=== PATIENT | female | born 1990 | race Caucasian/White ===

== ENCOUNTER 2017-07-26 03:30 | Inpatient (IN) | payer OTHER ==
[2017-07-26] MEDS ORDERED: AMPICILLIN SODIUM 2 GM VIAL ONE (04:26)
[2017-07-26] MEDS ORDERED: AMPICILLIN - 2 GM in SODIUM CHLORIDE 100 ML IVPB ONE (04:30)
[2017-07-26 04:45] LABS: BASO % 0.2 % (0-2.0); EOS % 1.1 % (0-4.5); HEMATOCRIT 37.3 % (32.4-45.2); HEMOGLOBIN 12.4 GM/dL (10.7-15.3); LYMPH % 16.2 % (8-40); MCH 31.5 pg (25.7-33.7); MCHC 33.1 g/dl (32.0-36.0); MEAN CELL VOLUME 95.2 fl (80-96); MEAN PLT VOLUME 9.9 fl (7.5-11.1); MONO % 7.2 % (3.8-10.2); NEUT % 75.3 % (42.8-82.8); PLATELET COUNT 220 K/MM3 (134-434); RBC 3.92 M/mm3 (3.60-5.2); RDW 14.2 % (11.6-15.6); WHITE BLOOD COUNT 7.5 K/mm3 (4.0-10.0)
[2017-07-26 04:57] LABS: INR 0.88 (0.82-1.09)
[2017-07-26 05:00] LABS: ACTIVATED PTT 27.6 SECONDS (26.9-34.4)
[2017-07-26 05:04] LABS: ANION GAP 10 (8-16); BLOOD UREA NITROGEN 10 mg/dL (7-18); CALCIUM 7.8 mg/dL (8.5-10.1); CHLORIDE 110 mmol/L (98-107); CO2 21 mmol/L (21-32); CREATININE 0.6 mg/dL (0.55-1.02); GLUCOSE,RANDOM 78 mg/dL (74-106); POTASSIUM 4.1 mmol/L (3.5-5.1); SODIUM 141 mmol/L (136-145)
[2017-07-26 05:08] VITALS: BMI 31.8
[2017-07-26] MEDS ORDERED: DEXTROSE 5%-LACTATED RINGERS 1,000 ML IV SCH (05:30)
[2017-07-26] MEDS ORDERED: BUTORPHANOL TARTRATE 1 MG/ML VIAL ONE (06:19)
[2017-07-26] MEDS ORDERED: PROMETHAZINE HCL 25 MG/1 ML VIAL ONE (06:19)
[2017-07-26] MEDS ORDERED: BUTORPHANOL TARTRATE 1 MG/ML VIAL IVPUSH ONE (06:30)
[2017-07-26] MEDS ORDERED: PROMETHAZINE HCL 25 MG/1 ML VIAL IVPB ONE (06:30)
[2017-07-26] MEDS ORDERED: ELECTROLYTE-148 SOLN 1,000 ML IV ONE (06:40)
--- NOTE | 2017-07-26 07:22 | PN ---
Progress Note (short form) - Note Progress Note: cx 6 cm, 100 vx ,-1 mi, variable deceleration , with good recovery, arom done small clear fluid , scalp electrode , LT side
--- NOTE | 2017-07-26 07:29 | HP ---
Past Medical History - Primary Care Physician PCP:: Jake Boucher - Admission Chief Complaint: 39 weeks, labor History of Present Illness: 26 yo f g 3 p2002 edc by sono 07/30/17 in labor , cx 3 cm 80 vx -2 mi fhr cat 1, contraction q 2 min History Source: Patient Limitations to Obtaining History: No Limitations - Past Medical History ...: 3 ...Para: 2 ...Term: 2 ...LMP: 10/23/16 ...EDC by Sono: 07/30/17 - Past Surgical History Hx Myomectomy: No Hx Transabdominal Cerclage: No - Smoking History Smoking history: Never smoked Have you smoked in the past 12 months: No - Alcohol/Substance Use Hx Alcohol Use: No - Social History Usual Living Arrangement: Yes: With Spouse History of Recent Travel: No Home Medications - Allergies Allergies/Adverse Reactions: Allergies Allergy/AdvReac Type Severity Reaction Status Date / Time No Known Drug Allergies Allergy Verified 05/04/16 10:27 - Home Medications Home Medications: Ambulatory Orders Plus Iron Tablet 1 tab PO DAILY 07/26/17 Review of Systems - Review of Systems Constitutional: reports: No Symptoms Eyes: reports: No Symptoms HENT: reports: No Symptoms Neck: reports: No Symptoms Cardiovascular: reports: No Symptoms Respiratory: reports: No Symptoms Gastrointestinal: reports: No Symptoms Genitourinary: reports: No Symptoms Breasts: reports: No Symptoms Reported Musculoskeletal: reports: No Symptoms Integumentary: reports: No Symptoms Neurological: reports: No Symptoms Endocrine: reports: No Symptoms Hematology/Lymphatic: reports: No Symptoms Psychiatric: reports: No Symptoms Physical Exam - Maternity Vital Signs: Vital Signs Temperature 98.2 F 07/26/17 06:00 Pulse Rate 74 07/26/17 06:00 Respiratory Rate 20 07/26/17 06:00 Blood Pressure 133/87 07/26/17 06:00 O2 Sat by Pulse Oximetry (%) Constitutional: Yes: Well Nourished, No Distress, Calm Eyes: Yes: WNL, Conjunctiva Clear, EOM Intact HENT: Yes: WNL, Atraumatic, Normocephalic Neck: Yes: WNL, Supple, Trachea Midline Cardiovascular: Yes: WNL, Regular Rate and Rhythm Breast(s): Yes: WNL - Abdominal Exam/OB Fundal Height: 40 Number of Fetuses: Single Presentation: Vertex Contractions: Yes Regularity: Regular Intensity: Mod/Strong Monitor Mode: External Heart Rate Location: [facility] Category: I Accelerations: Uniform Decelerations: None - Vaginal Exam/OB Vaginal Bleediing: No Speculum Exam: No Dilatation (cm): 3 cm Effacement (%): 80 Presentation: Vertex/Position Station: -2 - Physical Exam Musculoskeletal: Yes: WNL Extremities: Yes: WNL Edema: Yes Edema: LLE: Trace, RLE: Trace Deep Tendon Reflex Grade: Normal +2 Psychiatric: Yes: WNL - Labs Lab Results: CBC, BMP 07/26/17 04:30 07/26/17 04:30 Hemorrhage Risk Assessment - Risk Factors Medium Risk Factors: Yes: None High Risk Factors: Yes: None Risk Score: 1 Risk Level: Medium Risk Problem List - Problems (1) with 39 completed weeks gestation Code(s): Z3A.39 - 39 WEEKS GESTATION OF (2) Labor established Code(s): [id number] - Assessment/Plan plan admit, fhm, pain management
[2017-07-26] MEDS ORDERED: LIDOCAINE HCL 1% PRESERVATIVE FREE - 30ML VIAL ONE (07:56)
[2017-07-26] MEDS ORDERED: BENZOCAINE 20% 57 GM BOTTLE TP PRN (08:09)
[2017-07-26] MEDS ORDERED: BISACODYL 10 MG SUPP.RECT RC PRN (08:09)
[2017-07-26] MEDS ORDERED: oxyCODONE HCL 5 MG TABLET PO PRN (08:09)
[2017-07-26] MEDS ORDERED: WITCH HAZEL 50% (TUCKS) 40 PAD/JAR PAD TP PRN (08:09)
[2017-07-26] MEDS ORDERED: METHYLERGONOVINE MALEATE 0.2 MG/1 ML AMP IM PRN (08:09)
[2017-07-26] MEDS ORDERED: BENZOCAINE 28 GM HEMORRHOIDAL OINTMENT TP PRN (08:09)
[2017-07-26] MEDS ORDERED: D5W-LR W/ 20 UNITS OXYTOCIN 20 UNIT/1,000 ML INFUS.BAG IV SCH (08:15)
[2017-07-26 08:30] LABS: ARTERIAL BLD GAS O2 SATURATION 30.1 % (90-98.9)
[2017-07-26 08:52] LABS: VENOUS PC02 48.2 mmHg (38-52); VENOUS PH 7.2 (7.32-7.42)
[2017-07-26 08:53] LABS: VENOUS PO2 25.4 mmHg (28-48)
[2017-07-26] MEDS ORDERED: OXYTOCIN 20 UNITS in 0.9% NS 20 UNIT/1,000 ML INFUS.BAG IV ONE (08:54)
[2017-07-26] MEDS ORDERED: PRENATAL VITAMINS W/ FOLIC ACID TABLET (FP) PO SCH (10:00)
[2017-07-26] MEDS: AMPICILLIN - 1 GM in SODIUM CHLORIDE 100 ML IVPB SCH ×4 (10:14→21:30)
[2017-07-26] MEDS: IBUPROFEN 600 MG TABLET (FP) PO PRN (10:17)
[2017-07-26] MEDS: FERROUS SO4 325 MG TABLET (FP) PO SCH ×2 (10:17→21:31)
[2017-07-26] MEDS: PRENATAL VITAMINS W/ FOLIC ACID TABLET (FP) PO SCH (10:17)
[2017-07-26] MEDS: ACETAMINOPHEN 325 MG TABLET (FP) PO PRN (10:18)
[2017-07-27] MEDS: AMPICILLIN - 1 GM in SODIUM CHLORIDE 100 ML IVPB SCH ×2 (03:38→06:06)
[2017-07-27 08:40] LABS: BASO % 0.4 % (0-2.0); EOS % 1.9 % (0-4.5); HEMATOCRIT 34.7 % (32.4-45.2); HEMOGLOBIN 11.2 GM/dL (10.7-15.3); LYMPH % 25.7 % (8-40); MCH 31.3 pg (25.7-33.7); MCHC 32.4 g/dl (32.0-36.0); MEAN CELL VOLUME 96.8 fl (80-96); MEAN PLT VOLUME 9.3 fl (7.5-11.1); PLATELET COUNT 194 K/MM3 (134-434); RBC 3.59 M/mm3 (3.60-5.2); RDW 14.9 % (11.6-15.6); WHITE BLOOD COUNT 5.2 K/mm3 (4.0-10.0)
[2017-07-27] MEDS: PRENATAL VITAMINS W/ FOLIC ACID TABLET (FP) PO SCH (09:26)
[2017-07-27] MEDS: FERROUS SO4 325 MG TABLET (FP) PO SCH ×2 (09:26→21:27)
--- NOTE | 2017-07-27 13:00 | PN ---
Post Progress Note - Subjective Subjective: 26 yo Para 3 status post vaginal delivery, seen and evaluated. Doing well. Post Day: 1 Type of Delivery: Vital Signs: Vital Signs Temperature 97.9 F 07/27/17 06:00 Pulse Rate 80 07/27/17 06:00 Respiratory Rate 18 07/27/17 06:00 Blood Pressure 112/66 07/27/17 06:00 O2 Sat by Pulse Oximetry (%) 100 07/26/17 09:00 Breast Exam: Yes: Soft Uterus: Yes: Fundus Firm Abdomen/GI: Yes: Abdomen soft, Tolerating PO Lochia: Yes: Rubra Lochia, amount: Small Extremities: Yes: Calves non-tender Perineum: Yes: Intact Activity: Ambulating - Labs Labs: CBC WBC 5.2 K/mm3 (4.0-10.0) D 07/27/17 08:00 RBC 3.59 M/mm3 (3.60-5.2) L 07/27/17 08:00 Hgb 11.2 GM/dL (10.7-15.3) 07/27/17 08:00 Hct 34.7 % (32.4-45.2) 07/27/17 08:00 MCV 96.8 fl (80-96) H 07/27/17 08:00 MCH 31.3 pg (25.7-33.7) 07/27/17 08:00 MCHC 32.4 g/dl (32.0-36.0) 07/27/17 08:00 RDW 14.9 % (11.6-15.6) 07/27/17 08:00 Plt Count 194 K/MM3 (134-434) 07/27/17 08:00 MPV 9.3 fl (7.5-11.1) 07/27/17 08:00 Neutrophils % 62.0 % (42.8-82.8) 07/27/17 08:00 Lymphocytes % 25.7 % (8-40) D 07/27/17 08:00 Monocytes % 10.0 % (3.8-10.2) 07/27/17 08:00 Eosinophils % 1.9 % (0-4.5) 07/27/17 08:00 Basophils % 0.4 % (0-2.0) 07/27/17 08:00 Problem List - Problems (1) Status post normal vaginal delivery Code(s): NFC1205 - Assessment/Plan Status post vaginal delivery Stable Continue routine care
[2017-07-27] MEDS ORDERED: SENNOSIDES/DOCUSATE COMBO (SENNA PLUS) TABLET (UD) PO PRN (22:00)
--- NOTE | 2017-07-28 05:51 | DS ---
Physical Exam-[employer] [employer] Vital Signs: Vital Signs Temperature 98.4 F 07/27/17 20:55 Pulse Rate 96 H 07/27/17 20:55 Respiratory Rate 20 07/27/17 20:55 Blood Pressure 118/69 07/27/17 20:55 O2 Sat by Pulse Oximetry (%) 100 07/26/17 09:00 Constitutional: Yes: Well Nourished Eyes: Yes: Conjunctiva Clear HENT: Yes: Atraumatic Neck: Yes: Supple, Trachea Midline Cardiovascular: Yes: Regular Rate and Rhythm Respiratory: Yes: Regular, CTA Bilaterally Gastrointestinal: Yes: Normal Bowel Sounds External Genitalia: Yes: Normal Vaginal Exam: Yes: Normal ....Post : Yes: Uterus firm, Slight lochia rubra Breast(s): Yes: WNL Extremities: Yes: WNL Neurological: Yes: Alert, Oriented ...Motor Strength: WNL Psychiatric: Yes: Alert, Oriented Labs: CBC, BMP 07/27/17 08:00 07/26/17 04:30 Delivery - Delivery Type of Anesthesia: None Episiotomy/Laceration: None EBL (cc): 300 Delivery, Single - Stages of Labor Date 1st Stage Initiatied: 07/26/17 Time 1st Stage Initiated: 01:00 Date 2nd Stage Initiated: 07/26/17 Time 2nd Stage Initiated: 07:55 Date of Delivery: 07/26/17 Time of Delivery: 08:00 Time Placenta Delivered: 08:05 - Condition of Infant Cosmetic Account Coordinator/Painting Supervisor Present: No Infant Gender: Male Weight: 5 lb Position: Left, OA Total Hours ROM (Hrs/Mins): 50min - 1 Minute Total Score: 9 5 Minutes Total Score: 9 - [employer] Feeding Plan Initial Plan: Exclusive throughout hospitalization Discharge Summary Reason For Visit: LABOR ADMIT Current Active Problems Labor established (Acute) with 39 completed weeks gestation (Acute) Status post normal vaginal delivery (Acute) Procedures: Principal: Normal spontaneous vaginal delivery Hospital Course: Routine care Condition: Good - Instructions Diet, Activity, Other Instructions: Regular diet No douching, no sexual intercourse x 6 weeks F/U in clinic in 6 weeks Disposition: HOME - Home Medications Comprehensive Discharge Medication List: Ambulatory Orders Ferrous Sulfate 325 mg PO DAILY 07/26/17 Vitamins (Sjr) - 1 tab PO DAILY 07/26/17
[2017-07-28] MEDS: ACETAMINOPHEN 325 MG TABLET (FP) PO PRN (08:23)
[2017-07-28] MEDS: IBUPROFEN 600 MG TABLET (FP) PO PRN (08:23)
[2017-07-28] MEDS: PRENATAL VITAMINS W/ FOLIC ACID TABLET (FP) PO SCH (10:54)
[2017-07-28] MEDS: FERROUS SO4 325 MG TABLET (FP) PO SCH (10:54)
[2017-07-28 13:49] VITALS: BP 119/80; PULSE 77; TEMP 97.8
== END 2017-07-28 12:00 | disposition home or self-care (01) | DRG 560 ==
LOC: JDEL 03:30 → JLDR 04:00 → J3W 09:43
PROVIDERS: ADMIT Obstetrics & Gynecology; ATTEND Obstetrics & Gynecology
PROC: 10E0XZZ Delivery of Products of Conception, External Approach (ICD-10-PCS; principal; 2017-07-26)
DX: O76 Abnormality in fetal heart rate and rhythm complicating labor and delivery (principal); Z3A.39 39 weeks gestation of pregnancy; Z37.0 Single live birth
CPT/HCPCS: 36415; 36600; 59409; 80048; 82803; 85025; 85610; 85730; 86593; 86850; 86900; 86901

== ENCOUNTER 2022-02-20 18:23 | Emergency (ER) | payer OTHER ==
[2022-02-20 18:30] VITALS: BP 111/73; PULSE 66; RESP 18; TEMP 98; BMI 30.2
[2022-02-20] MEDS ORDERED: SODIUM CHLORIDE 0.9% 500 ML INFUS.BAG IV ONE (20:43)
[2022-02-20] MEDS ORDERED: ACETAMINOPHEN 1000 MG/100 ML BAG IVPB ONE (20:43)
[2022-02-20] MEDS ORDERED: ACETAMINOPHEN INJECTION 100 ML IVPB ONE (20:46)
[2022-02-20 21:11] LABS: BASO % 0.2 % (0-2.0); EOS % 0.5 % (0-4.5); HEMATOCRIT 34.2 % (32.4-45.2); LYMPH % 9.7 % (8-40); MCH 33.7 pg (25.7-33.7); MCHC 35.2 g/dl (32.0-36.0); MEAN CELL VOLUME 95.8 fl (80-96); MEAN PLT VOLUME 8.1 fl (7.5-11.1); MONO % 3.7 % (3.8-10.2); NEUT % 85.9 % (42.8-82.8); PLATELET COUNT 315 10^3/uL (134-434); RBC 3.56 M/mm3 (3.60-5.2); RDW 12.6 % (11.6-15.6)
[2022-02-20 21:31] LABS: BLOOD UREA NITROGEN 9.9 mg/dL (7-18); CALCIUM 8.6 mg/dL (8.5-10.1)
[2022-02-20 21:34] LABS: CREATININE 0.5 mg/dL (0.55-1.3)
[2022-02-20 21:36] LABS: BILIRUBIN,TOTAL 0.3 mg/dL (0.2-1); TOT PROT 6.7 g/dl (6.4-8.2)
[2022-02-20 22:39] LABS: URINE APPEARANCE CLEAR; URINE BILIRUBIN NEGATIVE (NEGATIVE); URINE COLOR YELLOW; URINE GLUCOSE (UA) NEGATIVE (NEGATIVE); URINE KETONE NEGATIVE (NEGATIVE); URINE LEUK ESTERASE NEGATIVE (NEGATIVE); URINE NITRITE NEGATIVE (NEGATIVE); URINE PROTEIN NEGATIVE (NEGATIVE)
== END 2022-02-20 23:11 | disposition home or self-care (01) ==
LOC: JER 18:23
PROC: 3E033NZ Introduction of Analgesics, Hypnotics, Sedatives into Peripheral Vein, Percutaneous Approach (ICD-10-PCS; principal; 2022-02-20)
DX: O26.891 Other specified pregnancy related conditions, first trimester (principal); R11.10 Vomiting, unspecified; Z3A.12 12 weeks gestation of pregnancy
CPT/HCPCS: 36415; 76801-TC; 80053; 81003; 83735; 85025; 87086; 93005; 93010; 99284-25

== ENCOUNTER 2022-05-16 11:51 | Emergency (ER) | payer OTHER ==
[2022-05-16 13:01] VITALS: RESP 20; BMI 31.8
[2022-05-16] MEDS ORDERED: ALBUTEROL SO4 2.5/IPRATROPIUM 0.5 INH SOL 3 ML VIAL.NEB. NEB ONE ×2 (15:00→15:06)
[2022-05-16] MEDS ORDERED: IPRATROPIUM BR 0.02% 0.5 MG/2.5 ML VIAL.NEB. NEB ONE (15:06)
[2022-05-16 17:21] VITALS: BP 128/72; PULSE 82; TEMP 98.1
== END 2022-05-16 17:32 | disposition home or self-care (01) ==
LOC: JER 11:51
PROC: 3E0F7GC Introduction of Other Therapeutic Substance into Respiratory Tract, Via Natural or Artificial Opening (ICD-10-PCS; principal; 2022-05-16)
DX: O99.512 Diseases of the respiratory system complicating pregnancy, second trimester (principal); R06.2 Wheezing; J06.9 Acute upper respiratory infection, unspecified; Z3A.24 24 weeks gestation of pregnancy
CPT/HCPCS: 0241U-QW; 99283-25

== ENCOUNTER 2022-05-24 07:46 | Emergency (ER) | payer OTHER ==
[2022-05-24 07:57] VITALS: BP 112/66; PULSE 104; RESP 19; TEMP 98.2; BMI 31.7
[2022-05-24] MEDS ORDERED: ALBUTEROL SO4 2.5/IPRATROPIUM 0.5 INH SOL 3 ML VIAL.NEB. NEB ONE ×3 (08:29→10:01)
[2022-05-24] MEDS ORDERED: IBUPROFEN 100 MG/5 ML UNIT DOSE CUPS ONE (09:19)
[2022-05-24] MEDS ORDERED: guaiFENesin 600 MG TABLET.ER (FP) PO ONE (09:51)
[2022-05-24] MEDS ORDERED: ALBUTEROL SO4 0.5 % INH SOLN 2.5 MG/0.5 ML VIAL.NEB. NEB ONE (09:52)
[2022-05-24] MEDS ORDERED: ALBUTEROL SO4 0.083% IH SOL 2.5 MG/3 ML VIAL.NEB. NEB ONE (10:02)
[2022-05-24] MEDS ORDERED: MAGNESIUM SULF 50% (8.12 MEQ/2 ML-1 GM VIAL) IVPB ONE (11:15)
[2022-05-24] MEDS ORDERED: MAGNESIUM 1GM/D5W - 2 GM/200 ML IVPB IVPB ONE (11:24)
[2022-05-24] MEDS ORDERED: DEXAMETHASONE 4 MG TABLET (FP) PO ONE (11:36)
[2022-05-24] MEDS ORDERED: DEXAMETHASONE SOD PHOSPHATE 10 MG/1 ML VIAL ONE (11:42)
[2022-05-24 12:15] LABS: VENOUS BASE EXCESS -1.7 mmol/L (-2-2); VENOUS O2 SATURATION 50.7 % (70-80); VENOUS PCO2 41.2 mmHg (38-52); VENOUS PH 7.373 (7.310-7.410)
[2022-05-24 12:22] LABS: BASO % 0.4 % (0-2.0); EOS % 5.4 % (0-4.5); HEMOGLOBIN 11.6 GM/dL (10.7-15.3); LYMPH % 13.1 % (8-40); MCH 31.8 pg (25.7-33.7); MCHC 33.1 g/dl (32.0-36.0); MEAN PLT VOLUME 8.3 fl (7.5-11.1); MONO % 4.8 % (3.8-10.2); NEUT % 76.3 % (42.8-82.8); PLATELET COUNT 348 10^3/uL (134-434); RBC 3.64 M/mm3 (3.60-5.2); RDW 13.2 % (11.6-15.6); WHITE BLOOD COUNT 9.4 K/mm3 (4.0-10.0)
[2022-05-24 12:46] LABS: CHLORIDE 108 mmol/L (98-107); SODIUM 141 mmol/L (136-145)
[2022-05-24 12:48] LABS: CALCIUM 8.2 mg/dL (8.5-10.1)
[2022-05-24 12:49] LABS: ALBUMIN 2.6 g/dl (3.4-5.0); ANION GAP 9 MMOL/L (8-16); BLOOD UREA NITROGEN 8.2 mg/dL (7-18); CO2 24 mmol/L (21-32); GLUCOSE,RANDOM 113 mg/dL (74-106); MAGNESIUM 1.8 mg/dL (1.8-2.4)
[2022-05-24 12:52] LABS: CREATININE 0.5 mg/dL (0.55-1.3); SGOT/AST 15 U/L (15-37); SGPT/ALT 18 U/L (13-61)
[2022-05-24 12:53] LABS: BILIRUBIN,TOTAL 0.1 mg/dL (0.2-1)
[2022-05-24 12:54] LABS: TOT PROT 6.4 g/dl (6.4-8.2)
[2022-05-24 12:55] LABS: ALK PHOS 131 U/L (45-117)
[2022-05-24 12:57] LABS: N-TERMINAL BNP 11.7 pg/ml (5-125)
== END 2022-05-24 14:55 | disposition home or self-care (01) ==
LOC: JER 07:46
PROC: 3E033GC Introduction of Other Therapeutic Substance into Peripheral Vein, Percutaneous Approach (ICD-10-PCS; principal; 2022-05-24)
PROC: 3E0F7GC Introduction of Other Therapeutic Substance into Respiratory Tract, Via Natural or Artificial Opening (ICD-10-PCS; 2022-05-24)
DX: J45.909 Unspecified asthma, uncomplicated (principal)
CPT/HCPCS: 0241U-QW; 36415; 80053; 82803; 83735; 83880; 84484; 85025; 93005; 93010; 99285-25

== ENCOUNTER 2022-06-01 10:25 | Emergency (ER) | payer OTHER ==
[2022-06-01 10:38] VITALS: BP 99/60; PULSE 102; RESP 20; TEMP 98.2; BMI 32.1
[2022-06-01] MEDS ORDERED: ALBUTEROL SO4 2.5/IPRATROPIUM 0.5 INH SOL 3 ML VIAL.NEB. NEB ONE ×2 (11:33→11:35)
[2022-06-01] MEDS ORDERED: ACETAMINOPHEN 325 MG TABLET (FP) PO ONE (11:34)
[2022-06-01] MEDS ORDERED: DEXAMETHASONE LIQUID 0.5 MG/5 ML PO ONE (11:34)
[2022-06-01] MEDS ORDERED: DEXAMETHASONE SOD PHOSPHATE 10 MG/1 ML VIAL ONE (11:35)
[2022-06-01] MEDS ORDERED: ACETAMINOPHEN 325 MG TABLET (FP) ONE (11:44)
== END 2022-06-01 15:12 | disposition left against medical advice (07) ==
LOC: JERFT 10:25 → JER 10:25 → JERFT 15:12
PROC: 3E0F7GC Introduction of Other Therapeutic Substance into Respiratory Tract, Via Natural or Artificial Opening (ICD-10-PCS; principal; 2022-06-01)
DX: O99.512 Diseases of the respiratory system complicating pregnancy, second trimester (principal); J45.901 Unspecified asthma with (acute) exacerbation; Z3A.26 26 weeks gestation of pregnancy
CPT/HCPCS: 0241U-QW; 99283-25